=== PATIENT | male | born 1965 | race African-American/Black ===

== ENCOUNTER 2023-06-23 07:56 | Outpatient (CLI) | payer OTHER, SELFPAY ==
--- NOTE | ~2023-06-23 | US_ITS ---
EXAMINATION: US arterial ankle brachial ind DATE: 06/23/2023 08:48 INDICATION: Other specified disorders of muscle TECHNIQUE: Segmental pressures and plethysmographic and Doppler waveforms of the brachial and lower e xtremity arteries were obtained. COMPARISON: None. FINDINGS: Right and left brachial artery pressures of 129 mm Hg and 121 mm Hg, respectively, are concordant (no rmal difference <= 30 mmHg). The right ankle-brachial index (LILIANA) is 1.40 (normal >= 0.9-1.0). The right great toe-brachial index (TBI) is 0.82 (normal >= 0.65). Arterial Doppler waveforms are biphasic with brisk systolic upstrokes at both right posterior tibial and dorsalis pedis arteries. The left LILIANA is unable to be obtained due to inability to occlude the vessels. The left TBI is 0.84. Arterial Doppler waveforms are biphasic with brisk systolic upstrokes at both left posterior tibial a nd dorsalis pedis arteries. IMPRESSION: 1. No significant arterial occlusive disease to either lower limb with normal bilateral TBIs. Reviewed, dictated and finalized at location A. IMPRESSION: 1. No significant arterial occlusive disease to either lower limb with normal b ilateral TBIs.
== END 2023-06-23 07:57 | disposition home or self-care (01) ==
LOC: ANHIMG 08:02
PROVIDERS: PCP Physician Assistant; Visit Provider Internal Medicine
DX: M62.89 Other specified disorders of muscle (principal)
CPT/HCPCS: 93922